=== PATIENT | female | born 1990 | race African-American/Black ===

== ENCOUNTER 2017-06-15 00:30 | Emergency (ER) | payer OTHER ==
[~2017-06-15] VITALS: Ht 160 cm; Wt 95.3 kg
--- NOTE | 2017-06-15 00:46 | NUR ---
PT AMULATORY TO ER BED 1. PT BIB FAMILY C/O ALLERGIC REACTION TO TROPICAL DRINK X 9 HOURS. DENIES SOB. PT C/O ITCHING BILAT LOWER AND UPPER EXTREMITIES. PT STATES SHE TOOK BENEDRYL 50MG AND SHARRI X 5 HOURS AGO. VSS/RESP EVEN UNLABORED/NAD NOTED/SKIN WARM AND DRY/DENIES N-V-D/AFEBRILE/AOX4. AWAITING MD TAYLOR.
[2017-06-15] MEDS ORDERED: diphenhydrAMINE HCL 50 MG/ML VIAL IV ONE (02:00)
[2017-06-15] MEDS ORDERED: DEXAMETHASONE SOD PHOSPHATE 10 MG/ML VIAL IV ONE (02:00)
--- NOTE | 2017-06-15 02:01 | NUR ---
INFORMED MD, PT RECEIVED PO BENADRYL 50MG [employer]. PER MD CANCELED IV BENADRYL ORDER, VERBAL ORDERS TO GIVE DECADRON IM INSTEAD OF IV.
[2017-06-15] MEDS ORDERED: DEXAMETHASONE SOD PHOSPHATE 10 MG/ML VIAL ONE (02:05)
--- NOTE | 2017-06-15 03:51 | NUR ---
Patient discharged to home in stable condition. Written and verbal after care instructions given. Patient verbalizes understanding of instruction. Patient ambulatory with a steady gait.
[2017-06-15 03:52] VITALS: BP 111/68
== END 2017-06-15 03:53 | disposition home or self-care (01) ==
LOC: ER 00:32
DX: T78.40XA Allergy, unspecified, initial encounter (principal)
CPT/HCPCS: 96372; 99283; A4606; J1100; Z7610